=== PATIENT | male | born 1985 | race Asian ===

== ENCOUNTER 2017-08-02 17:25 | Emergency (ER) | payer OTHER ==
[~2017-08-02] VITALS: Ht 177.8 cm; Wt 97.5 kg
[2017-08-02 18:38] LABS: PLATELET COUNT 284 K/uL (142-355)
[2017-08-02 18:44] LABS: POTASSIUM 3.2 mmol/L (3.6-5.2)
[2017-08-02 21:00] VITALS: BP 113/64; TEMP 98.6
== END 2017-08-02 21:11 | disposition home or self-care (01) ==
LOC: ED 17:25
DX: K52.9 Noninfective gastroenteritis and colitis, unspecified (principal)
CPT/HCPCS: 36415; 74022; 80053; 85027; 96361; 96365; 96374; 99284; J2405; J7120